=== PATIENT | female | born 1960 | race Caucasian/White ===

== ENCOUNTER 2016-12-06 10:59 | Emergency (ER) | payer BC ==
[~2016-12-06 10:59] MED LIST: BACTRIM DS TAB1 EAC2 PO; KEFLEX500 M4 PO; NO HOME MEDICATION
[2016-12-06] MEDS ORDERED: BACTRIM DS TAB1 EAC2 PO (13:04)
[2016-12-06] MEDS ORDERED: KEFLEX500 M4 PO (13:04)
[2016-12-06] MEDS ORDERED: NORCO 5-325 TA1 EACH PO (13:05)
== END 2016-12-06 13:45 ==
LOC: EDMED 10:59
PROC: 0H96XZZ Drainage of Back Skin, External Approach (ICD-10-PCS; principal; 2016-12-06)
DX: L02.212 Cutaneous abscess of back [any part, except buttock and flank] (principal); L03.312 Cellulitis of back [any part except buttock and flank]

== ENCOUNTER 2016-12-09 20:36 | Observation (INO) | payer BC ==
[~2016-12-09 20:36] MED LIST changes: +NORCO 5-325 TA1 EACH PO
[2016-12-09 22:58] LABS: BASO % 0.2 % (0-2); EOS % 0.8 % (0-7); EOSINOPHIL ABSOLUTE COUNT 0.1 tho/cmm (0.0-0.7); HCT-HEMATOCRIT 42.6 % (34.0-49.0); HGB-HEMOGLOBIN 14.6 gm/dl (12.0-15.5); IMMATURE GRANULOCYTES ABSOLUTE 0.06 tho/cmm (0-0.03); IMMATURE GRANULOCYTES PERCENT 0.4 % (0-0.3); LYMPH % 11.5 % (20-45); LYMPH ABSOLUTE COUNT 1.9 tho/cmm (0.8-4.5); MCH (MEAN CORPUSCULAR HGB) 29.7 pg (28.0-32.0); MCHC MEAN CORPUSCULAR HGB CONC 34.3 % (32.0-36.0); MCV (MEAN CELL VOLUME) 86.6 fl (82.0-96.0); MONO % 7.5 % (0-12); MONOCYTE ABSOLUTE COUNT 1.2 tho/cmm (0.0-1.2); NEUTROPHILS % 79.6 % (40-80); PLATELET COUNT 274 tho/cmm (150-450); RED BLOOD COUNT 4.92 mil/cmm (4.00-5.20); RED CELL DISTRIBUTION WIDTH 12.2 % (12.4-16.4); WHITE BLOOD COUNT 16.4 tho/cmm (4.0-10.0)
[2016-12-09 23:06] LABS: ANION GAP 15 mmol/L (0-20); BLOOD UREA NITROGEN 17 mg/dl (6-24); CALCIUM 9.5 mg/dl (8.5-10.5); CARBON DIOXIDE-VENOUS 24 mmol/L (22-32); CHLORIDE 97 mmol/l (96-110); CREATININE 0.86 mg/dl (0.50-1.10); GLUCOSE 435 mg/dL (70-110); POTASSIUM 4.1 mmol/L (3.7-5.1); SODIUM 132 mmol/L (135-145); eGFR VALUE FOR BLACK 88 mL/Min
[2016-12-09] MEDS ORDERED: HYDROCODON-ACE1 EA16 PO (23:50)
[2016-12-09] MEDS ORDERED: BACTRIM DS TAB1 EAC2 PO (23:51)
[2016-12-09] MEDS ORDERED: CEPHALEXIN500 M1 PO (23:51)
[2016-12-10 00:43] LABS: PROCALCITONIN 0.34 ng/ml (0.05-0.09)
[2016-12-10 02:15] LABS: URINE BILIRUBIN NEGATIVE (NEG); URINE BLOOD NEGATIVE (NEG); URINE GLUCOSE (UA) LARGE (NEG); URINE KETONE MODERATE (NEG); URINE LEUKOCYTE ESTERASE NEGATIVE (NEG); URINE NITRITE NEGATIVE (NEG); URINE PROTEIN NEGATIVE (NEG); URINE SPECIFIC GRAVITY 1.015 (1.003-1.030)
[2016-12-10 02:18] LABS: URINE APPEARANCE CLEAR; URINE COLOR YELLOW
[2016-12-10 06:17] LABS: BASO % 0.3 % (0-2); EOS % 1.1 % (0-7); EOSINOPHIL ABSOLUTE COUNT 0.2 tho/cmm (0.0-0.7); HCT-HEMATOCRIT 37.9 % (34.0-49.0); HGB-HEMOGLOBIN 12.8 gm/dl (12.0-15.5); IMMATURE GRANULOCYTES ABSOLUTE 0.07 tho/cmm (0-0.03); IMMATURE GRANULOCYTES PERCENT 0.5 % (0-0.3); LYMPH % 15.4 % (20-45); LYMPH ABSOLUTE COUNT 2.2 tho/cmm (0.8-4.5); MCH (MEAN CORPUSCULAR HGB) 29.1 pg (28.0-32.0); MCHC MEAN CORPUSCULAR HGB CONC 33.8 % (32.0-36.0); MCV (MEAN CELL VOLUME) 86.1 fl (82.0-96.0); MONO % 7.5 % (0-12); MONOCYTE ABSOLUTE COUNT 1.1 tho/cmm (0.0-1.2); NEUTROPHIL ABSOLUTE COUNT 10.7 tho/cmm (1.6-8.0); NEUTROPHIL-AUTOMATED 10.7 tho/cmm (1.6-8.0); NEUTROPHILS % 75.2 % (40-80); PLATELET COUNT 233 tho/cmm (150-450); RED CELL DISTRIBUTION WIDTH 12.3 % (12.4-16.4); WHITE BLOOD COUNT 14.3 tho/cmm (4.0-10.0)
[2016-12-10 06:22] LABS: ANION GAP 14 mmol/L (0-20); BLOOD UREA NITROGEN 12 mg/dl (6-24); C-REACTIVE PROTEIN 16.8 mg/dl (0-0.9); CALCIUM 8.5 mg/dl (8.5-10.5); CARBON DIOXIDE-VENOUS 25 mmol/L (22-32); CHLORIDE 103 mmol/l (96-110); CREATININE 0.67 mg/dl (0.50-1.10); GLUCOSE 288 mg/dL (70-110); POTASSIUM 4.1 mmol/L (3.7-5.1); SODIUM 138 mmol/L (135-145); eGFR VALUE FOR BLACK >90 mL/Min
[2016-12-10 12:51] LABS: ANION GAP 13 mmol/L (0-20); BLOOD UREA NITROGEN 10 mg/dl (6-24); CALCIUM 8.6 mg/dl (8.5-10.5); CARBON DIOXIDE-VENOUS 24 mmol/L (22-32); CHLORIDE 102 mmol/l (96-110); CREATININE 0.62 mg/dl (0.50-1.10); GLUCOSE 244 mg/dL (70-110); POTASSIUM 4.3 mmol/L (3.7-5.1); SODIUM 135 mmol/L (135-145); eGFR VALUE FOR BLACK >90 mL/Min
[2016-12-11] MEDS ORDERED: SULFAMYLON SOL250 M1 EXT (08:00)
[2016-12-11] MEDS ORDERED: GLUCOTROL XL5 M1 PO (08:01)
[2016-12-11] MEDS ORDERED: METFORMIN HCL500 M2 PO (08:01)
== END 2016-12-11 12:10 ==
LOC: EDMED 20:36 → EMR2 12-10 01:38 → ORW 12-10 14:44 → PACU 12-10 15:15 → CAR1 12-10 16:05
PROVIDERS: Emergency Medicine; Hospitalist; Registered Nurse; ADMIT Hospitalist
PROC: 0J970ZZ Drainage of Back Subcutaneous Tissue and Fascia, Open Approach (ICD-10-PCS; principal; 2016-12-10)
DX: L02.212 Cutaneous abscess of back [any part, except buttock and flank] (principal); E11.9 Type 2 diabetes mellitus without complications; R73.9 Hyperglycemia, unspecified; E87.1 Hypo-osmolality and hyponatremia; E66.9 Obesity, unspecified; Z98.890 Other specified postprocedural states; Z79.891 Long term (current) use of opiate analgesic; Z79.899 Other long term (current) drug therapy
CPT/HCPCS: G0378; J1580; J1815; J2543; J3370; J3480; J7030; J7999